=== PATIENT | male | born 1990 ===

== ENCOUNTER 2017-08-16 04:47 | Emergency (ER) | payer OTHER, BC ==
[2017-08-16 05:11] VITALS: TEMP 98
[2017-08-16 05:37] LABS: BASO % 0.7 % (0.0-2.0); EOS # 0.1 K/uL (0.0-0.7); EOS % 1.4 % (0.0-4.0); HEMOGLOBIN 13.3 g/dL (12.0-18.0); LYMPH # 1.4 K/uL (1.0-4.3); LYMPH % 19.5 % (20.0-40.0); MEAN CELL VOLUME 85.6 fL (80.0-94.0); MEAN CORPUSCULAR HEMOGLOBIN 29.8 pg (27.0-31.0); MEAN CORPUSCULAR HGB CONC 34.8 g/dL (33.0-37.0); MEAN PLATELET VOLUME 8.5 fL (7.2-11.7); MONO # 0.4 K/uL (0.0-0.8); MONO % 6.2 % (0.0-10.0); NEUT % 72.2 % (50.0-75.0); RBC 4.47 Mil/uL (4.40-5.90); RED CELL DISTRIBUTION WIDTH 12.2 % (11.5-14.5); WHITE BLOOD COUNT 6.9 K/uL (4.8-10.8)
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
[2017-08-16 05:54] LABS: ALB/GLOB RATIO 1.3 (1.0-2.1); ALBUMIN 4.5 g/dL (3.5-5.0); ALT/SGPT 27 U/L (21-72); AST/SGOT 33 U/L (17-59); BLOOD UREA NITROGEN 8 mg/dL (9-20); CALCIUM 9.4 mg/dl (8.6-10.4); GFR AFRICAN-AMERICAN > 60; GFR NON-AFRICAN AMERICAN > 60
[2017-08-16] MEDS ORDERED: Iodixanol 320 MG/ML 100 ML BOTTLE IV ONE (06:07)
[2017-08-16 06:59] VITALS: BP 99/67; PULSE 68; RESP 11
[2017-08-16 07:08] VITALS: O2SAT 99
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
--- NOTE | 2017-08-17 22:25 | CARD ---
APPROVED REPORT EKG Measurement Heart [id number] CA [id number] [id number] <Conclusion> Normal sinus rhythm with sinus arrhythmia Normal ECG
== END 2017-08-16 08:17 | disposition home or self-care (01) ==
LOC: C.ER 04:47
DX: R07.89 Other chest pain (principal); V49.40XA Driver injured in collision with unspecified motor vehicles in traffic accident, initial encounter
CPT/HCPCS: 71260; 80053; 84484; 85025; 93005; 96374; 99285; J1885; Q9967

== ENCOUNTER 2017-08-22 12:00 | Emergency (ER) | payer OTHER, BC ==
[2017-08-22 12:22] VITALS: BP 124/76; PULSE 81; RESP 16; TEMP 98.2; O2SAT 98
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
== END 2017-08-22 12:58 | disposition home or self-care (01) ==
LOC: C.ER 12:00
DX: M79.1 Myalgia (principal)

== ENCOUNTER 2017-12-11 16:59 | Emergency (ER) | payer BC, OTHER ==
[2017-12-11 17:09] VITALS: TEMP 98
[2017-12-11] MEDS ORDERED: PROPARACAINE/FLUORESCEIN SOD 100 DROP/5 ML BOTTLE OD STA (17:55)
[2017-12-11] MEDS ORDERED: Fluorescein 1 mg Ophthalmic Strip ONE (18:01)
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
[2017-12-11 18:29] LABS: URINE BACTERIA RARE (<OCC); URINE BILIRUBIN NEGATIVE (NEGATIVE); URINE BLOOD NEGATIVE (NEGATIVE); URINE CLARITY Clear (Clear); URINE COLOR Yellow (YELLOW); URINE GLUCOSE (UA) NORMAL (Normal); URINE LEUKOCYTE ESTERASE NEG Leu/uL (Negative); URINE PROTEIN 1+ mg/dL (NEGATIVE); URINE UROBILINOGEN NORMAL mg/dL (0.2-1.0)
[2017-12-11] MEDS ORDERED: Bacitracin Ointment 30 GM TUBE TOP STA (19:13)
[2017-12-11] MEDS ORDERED: Bacitracin 500 Units/gm Oint Foilpak UD ONE (19:34)
[2017-12-11 20:16] VITALS: BP 118/75; PULSE 76; RESP 16; O2SAT 98
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
== END 2017-12-11 20:15 | disposition home or self-care (01) ==
LOC: C.ER 16:59
DX: S00.01XA Abrasion of scalp, initial encounter (principal); S10.91XA Abrasion of unspecified part of neck, initial encounter; S20.411A Abrasion of right back wall of thorax, initial encounter; S30.810A Abrasion of lower back and pelvis, initial encounter; S00.10XA Contusion of unspecified eyelid and periocular area, initial encounter; Y08.89XA Assault by other specified means, initial encounter; Y92.89 Other specified places as the place of occurrence of the external cause